=== PATIENT | male | born 1985 ===

== ENCOUNTER → 2018-08-20 20:41 | Outpatient (REF) | payer OTHER, SELFPAY ==
[2018-08-20 21:40] LABS: Add Manual Diff / Slide Review NO; Basophils Absolute Auto 0 /uL (0-100); Basophils Percent Auto 0.4 % (0-2); Eosinophils Absolute Auto 100 /uL (0-450); Eosinophils Percent Auto 2.5 % (2-4); Hematocrit 44.5 % (41-53); Hemoglobin 15.2 g/dL (13.5-17.5); Lymphocytes Absolute Auto 1300 /uL (1100-4500); Mean Corpuscular HGB Conc 34.1 % (30-36); Mean Corpuscular Hemoglobin 30.8 PG (26-34); Mean Corpuscular Volume 90.2 fL (80-100); Monocytes Absolute Auto 300 /uL (0-900); Monocytes Percent Auto 9.8 % (3-14); Neutrophils Absolute Auto 1600 /uL (1500-7000); Neutrophils Percent Auto 48.3 % (50-75); Platelet Count 145 X10^3/uL (150-400); Red Blood Cell Count 4.93 X10^6/uL (4.5-5.9); Red Cell Distribution Width 13.7 % (11.6-14.8); White Blood Cell Count 3.3 X10^3/uL (4.5-11.0)
[2018-08-23 20:44] LABS: Estradiol 45 pg/mL (< 40)
[2018-08-24 09:44] LABS: Sex Hormone Binding Globulin 78 nmol/L (10-50)
[2018-08-24 15:49] LABS: PSA Total 0.28 ng/mL (< 4.01)
[2018-08-25 14:05] LABS: Testosterone Free 78.2
[2018-08-25 14:06] LABS: Testosterone Total 928
== END ==
LOC: LAB 20:41
PROVIDERS: Visit Provider Naturopath
DX: S13.4XXA Sprain of ligaments of cervical spine, initial encounter (principal); Z13.89 Encounter for screening for other disorder; S23.3XXA Sprain of ligaments of thoracic spine, initial encounter; E29.1 Testicular hypofunction; R68.82 Decreased libido; J16.8 Pneumonia due to other specified infectious organisms; Q84.0 Congenital alopecia
CPT/HCPCS: 36415; 82670; 84153; 84154; 84270; 84402; 84403; 85025